=== PATIENT | male | born 1955 | race Caucasian/White ===

== ENCOUNTER 2020-04-03 14:19 | Outpatient (CLI) | payer OTHER | END 2020-04-03 14:20 | disposition home or self-care (01) | LOC: COV 14:19 | PROVIDERS: ATTEND Family Medicine | DX: Z11.59 Encounter for screening for other viral diseases (principal) ==

== ENCOUNTER 2021-08-24 06:43 | Outpatient (CLI) | payer OTHER ==
--- NOTE | 2021-08-24 08:57 | Ultrasound Report ---
PROCEDURE: Aorta Screening INDICATIONS: AAA SCREENING TECHNIQUE: Real time scanning was performed of the aorta and iliac arteries, with image documentatio n. COMPARISON: None FINDINGS: Aorta: Proximal aortic diameter measures 2.5 x 2.4 cm. Mid-aorta measures 2.2 x 2.2 cm. Distal aor tic diameter is 2.1 x 2.1 cm. Iliac arteries: Right common iliac artery measures 1.2 x 1.3 cm. Left common iliac artery measures 1.2 x 1.2 cm. IMPRESSION: No abdominal or proximal iliac artery aneurysm. Reviewed by: Leslie Mazariegos MD on 08/24/2021 8:55 AM PST Approved by: Leslie Mazariegos MD on 08/24/2021 8:55 AM PST Station ID: [id number]
== END 2021-08-24 06:44 | disposition home or self-care (01) ==
LOC: DI 06:43
PROVIDERS: ATTEND Internal Medicine
DX: Z13.6 Encounter for screening for cardiovascular disorders (principal)